=== PATIENT | male | born 1995 | race Caucasian/White ===

== ENCOUNTER 2019-01-20 19:36 | Inpatient (IN) ==
[2019-01-20] MEDS ORDERED: SODIUM CHLORIDE 0.9% 1000ML 1,000 ML IV SCH (20:00)
[2019-01-20 20:27] LABS: Basophils # (auto) 0.03 K/uL (0-0.2); Basophils % (auto) 0.2 %; Eosinophils # (auto) 0.11 K/uL (0-0.5); Eosinophils % (auto) 0.8 %; Hematocrit (blood only) 41.1 % (42-52); Hemoglobin 14.2 g/dL (14.0-18.0); Immature Granulocytes # (auto) 0.03 K/uL (0.00-0.02); Immature Granulocytes % (auto) 0.2 %; Lymphocytes # (auto) 1.42 K/uL (1.2-3.4); Lymphocytes % (auto) 10.5 %; Mean Corpuscular Hemoglobin 31.4 pg (25-34); Mean Corpuscular Hgb Conc 34.5 g/dL (32-36); Mean Corpuscular Volume 90.9 fL (80-100); Mean Platelet Volume 9.3 fL (7.4-10.4); Monocytes # (auto) 1.12 K/uL (0.11-0.59); Monocytes % (auto) 8.3 %; Neutrophils # (auto) 10.75 K/uL (1.4-6.5); Platelet Count 248 K/uL (130-400); RDW Coefficient of Variation 12.1 % (11.5-14.5); RDW Standard Deviation 40.5 fL (36.4-46.3); Red Blood Count 4.52 M/uL (4.7-6.1); White Blood Count 13.46 K/uL (4.8-10.8)
[2019-01-20 20:37] LABS: iSTAT Creatinine 0.7 mg/dl (0.6-1.3); iSTAT Hemoglobin 13.9 g/dl (14.0-18.0); iSTAT Ionized Calcium 1.19 mmol/l (1.12-1.32); iSTAT Potassium 3.9 mEq/L (3.3-5.0)
[2019-01-20 20:37] LABS: Appearance Urine Clear (Clear); Bilirubin Urine Negative (Negative); Blood Urine Negative (Negative); Color Urine Yellow; Glucose Urine UA Negative (Negative); Ketones Urine Trace (Negative); Leukocyte Esterase Urine Negative (Negative); Nitrite Urine Negative (Negative); Protein Urine Negative (Negative); Specific Gravity Urine 1.025 (1.000-1.030); Urobilinogen Urine Negative (Negative); pH Urine 5.5 (4.5-7.5)
[2019-01-20 20:49] LABS: Albumin Level 4.5 gm/dl (3.4-5.0); BUN Creatinine Ratio 20.6 (10-20); Calcium 9.4 mg/dl (8.5-10.1); Creatinine Clr Calc Pharmacy 129.2 ml/min; Est GFR (African American) 143.4; Est GFR (Non-African American) 123.7; Potassium 3.9 mmol/L (3.5-5.1)
[2019-01-20 20:52] LABS: Albumin Globulin Ratio 1.5 (0.9-2); Bilirubin,Total 1.1 mg/dl (0.2-1); Total Protein 7.5 gm/dl (6.4-8.2)
[2019-01-20] MEDS ORDERED: IOVERSOL 100ml IV PRN (21:41)
--- NOTE | 2019-01-20 21:51 | CT Scan Report ---
CT abd pelvis IV con only CLINICAL HISTORY: Lower abdominal pain. COMPARISON STUDY: None. TECHNIQUE: The patient was scanned in a dynamic helical fashion during intravenous administration of 89 cc of Optiray 320. A dose lowering technique was utilized adhering to the principles of ALARA. CT DOSE: 285.87 mGy.cm FINDINGS: Lower chest: The heart is normal in size and configuration, without pericardial effusion. The lung ba ses and pleural spaces are clear. Liver: The contrast-enhanced liver is normal in size, contour, and attenuation. There is no intrahepa tic biliary ductal dilatation. The hepatic veins and portal veins are patent. Gallbladder: Unremarkable. Spleen: Normal in size and attenuation. Pancreas: Unremarkable. Adrenal glands: There is mild left adrenal gland thickening. Kidneys: There is a 1 cm right renal cyst. There is a 9 mm lower pole left renal cyst. Bowel: There are no transition zones indicate bowel obstruction. There is no evidence of acute divert iculitis. There is a dilated fluid-filled appendix containing an appendicolith. There is periappendic eal inflammatory stranding. The findings are indicative of acute appendicitis. There is associated sm all to moderate free pelvic fluid. Peritoneum: There is free pelvic fluid. There is no free intraperitoneal air. Vasculature: The abdominal aorta is normal in course and caliber. Adenopathy: None. Pelvic viscera: The bladder, and pelvic viscera are unremarkable. Skeletal structures: There is a right femoral head bone island. No destructive lesions are visualized . There is an L5 limbus vertebra. IMPRESSION: Acute appendicitis with associated free pelvic fluid. Electronically signed by: Alex Foreman M.D. 01/20/2019 9:50 PM
--- NOTE | 2019-01-20 21:58 | Emergency Department Note ---
Entered by Radha Tolbert acting as a scribe for Miki Flores DO History of Present Illness General Chief complaint: Abdominal Pain Stated complaint: PAIN IN LOWER STOMACH,REFERRED BY DOC Source: patient History of Present Illness Onset (ago): hour(s) (24) Location: abdomen (lower) Radiation: non-radiation Pain Consistency: + constant Maximum Pain Intensity: 7 Associated symptoms: + denies other symptoms (back pain) and + nausea/vomiting (positive nausea, negative vomiting) The patient is a 23 year old male who presents to the Emergency Room with complaints of constant lower abdominal pain beginning approximately 24 hours ago. The patient notes the pain does not radiate outside of the abdomen. The patient reports nausea but no vomiting. He denies back pain. The patient states he visited [facility] where he was told to come to the ER for a possible appendix problem. The patient notes similar symptoms previously. 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 and A total of 10 systems reviewed and were otherwise negative Physical Exam Vital Signs Vital Signs - 24 hr 01/20/19 19:42 01/20/19 21:45 01/20/19 22:17 Temperature 36.8 C Temperature Source Oral Sepsis Recent Fever Within 48 Hours No Sepsis Action Taken by Nursing No Action Required Pulse Rate 82 82 Pulse Rate [Right Finger] 80 Pulse Rhythm Regular Respiratory Rate 18 18 18 Respiratory Effort / Characteristics Non-Labored Respiratory Depth Normal Blood Pressure 140/80 Blood Pressure [Right Arm] 119/65 Blood Pressure Mean 100 Blood Pressure Mean [Right Arm] 83 Blood Pressure Position [Right Arm] Sitting Pulse Oximetry 99 98 98 Oxygen Delivery Method Room Air Room Air Room Air 01/20/19 22:47 Temperature Temperature Source Sepsis Recent Fever Within 48 Hours Sepsis Action Taken by Nursing Pulse Rate 82 Pulse Rate [Right Finger] Pulse Rhythm Respiratory Rate 18 Respiratory Effort / Characteristics Respiratory Depth Blood Pressure 119/64 Blood Pressure [Right Arm] Blood Pressure Mean Blood Pressure Mean [Right Arm] Blood Pressure Position [Right Arm] Pulse Oximetry 98 Oxygen Delivery Method Room Air GENERAL: Patient is awake, alert, and in no acute distress.Patient is resting comfortably and showing no signs of anxiety EYES: The conjunctivae are clear. The pupils are round and reactive. EARS, NOSE, MOUTH AND THROAT: The nose is without any evidence of any deformity. Mucous membranes are moist.Tongue is midline NECK: The neck is nontender and supple. RESPIRATORY: Normal respiratory effort is noted. There is no evidence of wheezing rhonchi or rales to auscultation. CARDIOVASCULAR: Regular rate and rhythm noted. There no murmurs rubs or gallops normal S1 normal S2 GASTROINTESTINAL: The abdomen is soft. Bowel sounds are present in all q uadrants. Lower abdomen moderately tender to palpation. No guarding or rigidity. BACK: No midline tenderness or or step-off noted range of motion in flexion extension as well as rotation no signs of muscle spasm noted. MUSCULOSKELETAL/EXTREMITIES: There is no evidence of gross deformity. Full range of motion is noted in the hips and shoulders. SKIN: There is no obvious evidence of any rash. There are no petechiae, pallor or cyanosis noted. NEUROLOGIC: Patient is awake alert and oriented x3. Course 1950: Past medical records reviewed. The patient was evaluated in room B09. A complete history and physical exam was performed. 2199: I spoke with Dr. Springer - [facility] who agrees to evaluate the patient and admit the patient for further management. The patient verbalized agreement of the treatment plan. Administered Medications Discontinued Medications Bacitracin (Bacitracin) Confirm Administered Dose 45 appln .ROUTE .[facility]-MED ONE Stop: 01/20/19 22:50 Last Admin: 01/21/19 00:13 Dose: 45 appln Documented by: [id number] Bupivacaine HCl (Marcaine 0.5% Mpf) Confirm Administered Dose 30 ml .ROUTE .[facility]- MED ONE Stop: 01/20/19 22:50 Last Admin: 01/21/19 00:13 Dose: 10 ml Documented by: [id number] Fluoxetine HCl (Prozac) 40 mg PO DAILY DOROTHY Stop: 02/20/19 08:59 Last Admin: 01/21/19 08:46 Dose: 40 mg Documented by: [id number] Sodium Chloride (Nss 1000ml) 1,000 mls @ 999 mls/hr IV .[id number] DOROTHY Stop: 01/20/19 21:00 Last Infusion: 01/20/19 21:32 Dose: 0 mls/hr Documented by: [id number] Admin: 01/20/19 20:28 Dose: 999 mls/hr Documented by: [id number] Cefoxitin Sodium (Mefoxin) 2,000 mg in 60 mls @ 100 mls/hr IV NOW ONE Stop: 01/20/19 23:35 Last Infusion: 01/21/19 02:00 Dose: 0 mls/hr Documented by: [id number] Admin: 01/20/19 23:44 Dose: 100 mls/hr Documented by: [id number] Cefoxitin Sodium 1,000 mg/ (Dextrose) 60 mls @ 100 mls/hr IV Q6H [facility] Stop: 01/23/19 05:59 Last Infusion: 01/21/19 06:33 Dose: 0 mls/hr Documented by: [id number] Admin: 01/21/19 05:57 Dose: 100 mls/hr Documented by: [id number] Lactated Ringer's (Lr) 1,000 mls @ 80 mls/hr IV .[id number] [facility] Stop: 02/20/19 00:29 Last Infusion: 01/21/19 06:34 Dose: 80 mls/hr Documented by: [id number] Infusion: 01/21/19 06:33 Dose: 80 mls/hr Documented by: [id number] Infusion: 01/21/19 05:57 Dose: 0 mls/hr Documented by: [id number] Admin: 01/21/19 01:39 Dose: 80 mls/hr Documented by: [id number] Ioversol (Optiray 320 100ml) 89 ml IV ONCE PRN PRN Reason: Interaction Checking Stop: 01/24/19 21:40 Last Admin: 01/20/19 21:41 Dose: 89 ml Documented by: [id number] Lidocaine HCl (Xylocaine 1% (Local)) Confirm Administered Dose 20 ml .ROUTE .STK-MED ONE Stop: 01/20/19 22:50 Last Admin: 01/21/19 00:14 Dose: 10 ml Documented by: [id number] Oxycodone/Acetaminophen (Percocet 5mg/325mg) 1 tab PO Q4H PRN PRN Reason: Pain Stop: 02/04/19 00:18 Last Admin: 01/21/19 10:59 Dose: 1 tab Documented by: [id number] Admin: 01/21/19 03:14 Dose: 1 tab Documented by: [id number] Medical Decision Making Differential Diagnosis Differential diagnoses includes but is not limited to gastritis, peptic ulcer disease, GERD, gallbladder disease, pancreatitis, small bowel obstruction, acute coronary syndrome, pericarditis, ischemic bowel, irritable bowel disease, irritable bowel syndrome, appendicitis, diverticulitis, malignancy, hernia, urinary tract infection, torsion, perforation, trauma, infectious. Medical Records Attestation: I reviewed the patient's medical records. Home Medications Current Medication List: was personally reviewed by me Laboratory Data Attestation: I reviewed the patient's lab results. Result diagrams: 01/21/19 04:53 01/20/19 20:17 Lab Results 01/20/19 01/20/19 01/20/19 Range/Units 20:17 20:17 20:22 WBC 13.46 H (4.8-10.8) K/uL RBC 4.52 L (4.7-6.1) M/uL Hgb 14.2 (14.0-18.0) g/dL POC Hgb 13.9 L (14.0-18.0) g/dl Hct 41.1 L (42-52) % POC Hct 41 L (42-52) % MCV 90.9 (80-100) fL MCH 31.4 (25-34) pg MCHC 34.5 (32-36) g/dL RDW Std Deviation 40.5 (36.4-46.3) fL RDW Coeff of Junior 12.1 (11.5-14.5) % Plt Count 248 (130-400) K/uL MPV 9.3 (7.4-10.4) fL Immature Gran % (Auto) 0.2 % Neut % (Auto) 80.0 % Lymph % (Auto) 10.5 % Cloud % (Auto) 8.3 % Eos % (Auto) 0.8 % Baso % (Auto) 0.2 % Immature Gran # (Auto) 0.03 H (0.00-0.02) K/uL Neut # (Auto) 10.75 H (1.4-6.5) K/uL Lymph # (Auto) 1.42 (1.2-3.4) K/uL Cloud # (Auto) 1.12 H (0.11-0.59) K/uL Eos # (Auto) 0.11 (0-0.5) K/uL Baso # (Auto) 0.03 (0-0.2) K/uL POC Sodium 139 (135-144) mEq/L Sodium 139 (136-145) mmol/L POC Potassium 3.9 (3.3-5.0) mEq/L Potassium 3.9 (3.5-5.1) mmol/L POC Chloride 102 (101-112) mEq/L Chloride 106 (98-107) mmol/L Carbon Dioxide 26 (21-32) mmol/L POC Total CO2 26 (24-31) mEq/l Anion Gap 7.0 (3-11) POC Anion Gap 16.0 (16-25) mmol/L POC BUN 18 (7-18) mg/dl BUN 17 (7-18) mg/dl Creatinine 0.85 (0.6-1.4) mg/dl POC Creatinine 0.7 (0.6-1.3) mg/dl Est Cr Clr Drug Dosing 129.2 ml/min Est GFR ( Amer) 143.4 Est GFR (Non-Af Amer) 123.7 BUN/Creatinine Ratio 20.6 H (10-20) Glucose 92 (70-99) mg/dl POC Glucose (other) 93 (70-99) mg/dl Calcium 9.4 (8.5-10.1) mg/dl POC Ioniz Calcium Matt 1.19 (1.12-1.32) mmol/l Total Bilirubin 1.1 H (0.2-1) mg/dl AST 66 H (15-37) U/L ALT 56 (12-78) U/L Alkaline Phosphatase 80 (45-117) U/L Total Protein 7.5 (6.4-8.2) gm/dl Albumin 4.5 (3.4-5.0) gm/dl Globulin 3.0 (2.5-4.0) gm/dl Albumin/Globulin Ratio 1.5 (0.9-2) Lipase 222 (73-393) U/L Urine Color Urine Appearance (Clear) Urine pH (4.5-7.5) Ur Specific [place] (1.000-1.030) Urine Protein (Negative) Urine Glucose (UA) (Negative) Urine Ketones (Negative) Urine Blood (Negative) Urine Nitrite (Negative) Urine Bilirubin (Negative) Urine Urobilinogen (Negative) Ur Leukocyte Esterase (Negative) 01/20/19 Range/Units 20:30 WBC (4.8-10.8) K/uL RBC (4.7-6.1) M/uL Hgb (14.0-18.0) g/dL POC Hgb (14.0-18.0) g/dl Hct (42-52) % POC Hct (42-52) % MCV (80-100) fL MCH (25-34) pg MCHC (32-36) g/dL RDW Std Deviation (36.4-46.3) fL RDW Coeff of Junior (11.5-14.5) % Plt Count (130-400) K/uL MPV (7.4-10.4) fL Immature Gran % (Auto) % Neut % (Auto) % Lymph % (Auto) % Cloud % (Auto) % Eos % (Auto) % Baso % (Auto) % Immature Gran # (Auto) (0.00-0.02) K/uL Neut # (Auto) (1.4-6.5) K/uL Lymph # (Auto) (1.2-3.4) K/uL [place] # (Auto) (0.11-0.59) K/uL Eos # (Auto) (0-0.5) K/uL Baso # (Auto) (0-0.2) K/uL POC Sodium (135-144) mEq/L Sodium (136-145) mmol/L POC Potassium (3.3-5.0) mEq/L Potassium (3.5-5.1) mmol/L POC Chloride (101-112) mEq/L Chloride (98-107) mmol/L Carbon Dioxide (21-32) mmol/L POC Total CO2 (24-31) mEq/l Anion Gap (3-11) POC Anion Gap (16-25) mmol/L POC BUN (7-18) mg/dl BUN (7-18) mg/dl Creatinine (0.6-1.4) mg/dl POC Creatinine (0.6-1.3) mg/dl Est Cr Clr Drug Dosing ml/min Est GFR ( Amer) Est GFR (Non-Af Amer) BUN/Creatinine Ratio (10-20) Glucose (70-99) mg/dl POC Glucose (other) (70-99) mg/dl Calcium (8.5-10.1) mg/dl POC Ioniz Calcium Matt (1.12-1.32) mmol/l Total Bilirubin (0.2-1) mg/dl AST (15-37) U/L ALT (12-78) U/L Alkaline Phosphatase (45-117) U/L Total Protein (6.4-8.2) gm/dl Albumin (3.4-5.0) gm/dl Globulin (2.5-4.0) gm/dl Albumin/Globulin Ratio (0.9-2) Lipase (73-393) U/L Urine Color Yellow Urine Appearance Clear (Clear) Urine pH 5.5 (4.5-7.5) Ur Specific [place] 1.025 (1.000-1.030) Urine Protein Negative (Negative) Urine Glucose (UA) Negative (Negative) Urine Ketones Trace H (Negative) Urine Blood Negative (Negative) Urine Nitrite Negative (Negative) Urine Bilirubin Negative (Negative) Urine Urobilinogen Negative (Negative) Ur Leukocyte Esterase Negative (Negative) Imaging Data Radiologist's Impression: Radiology results as stated below per my review and the radiologist's interpretation: CT abd pelvis IV con only CLINICAL HISTORY: Lower abdominal pain. COMPARISON STUDY: None. TECHNIQUE: The patient was scanned in a dynamic helical fashion during intravenous administration of 89 cc of Optiray 320. A dose lowering technique was utilized adhering to the principles of ALARA. CT DOSE: 285.87 mGy.cm FINDINGS: Lower chest: The heart is normal in size and configuration, without pericardial effusion. The lung bases and pleural spaces are clear. Liver: The contrast-enhanced liver is normal in size, contour, and attenuation. There is no intrahepatic biliary ductal dilatation. The hepatic veins and portal veins are patent. Gallbladder: Unremarkable. Spleen: Normal in size and attenuation. Pancreas: Unremarkable. Adrenal glands: There is mild left adrenal gland thickening. Kidneys: There is a 1 cm right renal cyst. There is a 9 mm lower pole left renal cyst. Bowel: There are no transition zones indicate bowel obstruction. There is no evidence of acute diverticulitis. There is a dilated fluid-filled appendix containing an appendicolith. There is periappendiceal inflammatory stranding. The findings are indicative of acute appendicitis. There is associated small to moderate free pelvic fluid. Peritoneum: There is free pelvic fluid. There is no free intraperitoneal air. Vasculature: The abdominal aorta is normal in course and caliber. Adenopathy: None. Pelvic viscera: The bladder, and pelvic viscera are unremarkable. Skeletal structures: There is a right femoral head bone island. No destructive lesions are visualized. There is an L5 limbus vertebra. IMPRESSION: Acute appendicitis with associated free pelvic fluid. Electronically signed by: Alex Foreman M.D. 01/20/2019 9:50 PM Blood Pressure Blood Pressure Findings: Normal blood pressure MDM Narrative The patient is a 23-year-old male who presented to the emergency department for evaluation of lower abdominal pain. The patient had bilateral lower quadrant tenderness. He was sent to the emergency department for [facility] express for possible appendicitis. The patient's exam was not completely consistent with an acute surgical abdomen however his white blood cell count was elevated. This prompted a CAT scan of the abdomen and pelvis which did show signs of acute appendicitis with pelvic fluid. I discussed the patient's laboratory and radiographic studies with him. He was treated with IV fluids. He did not wish to have any pain medication at this time. Because of his findings I discussed his case with the on-call general surgeon. They have agreed to evaluate the patient in the emergency department for further management disposition. Impression & Plan Acute appendicitis, Abdominal pain Discharge Plan Visit Data *Final* Discharge Date/Time: 01/20/19 22:47 Chief Complaint: Abdominal Pain Stated Complaint: PAIN IN LOWER STOMACH,REFERRED BY DOC ED Provider: Miki Flores Discharge Problem: Acute appendicitis, Abdominal pain Patient Disposition: Admitted As Inpatient Condition: Good Discharge Instructions Interventions: ED Discharge Assessment Last Done: 01/20/19 22:47 Discharge Problem: Acute appendicitis Qualifiers: Acute appendicitis type: with localized peritonitis Appendicitis gangrene pres ence: without gangrene Appendicitis perforation presence: without perforation Appendicitis abscess presence: without abscess Qualified Code(s): K35.30 - Acute appendicitis with localized peritonitis, without perforation or gangrene Abdominal pain Qualifiers: Abdominal location: lower abdomen, unspecified Qualified Code(s): R10.30 - Lower abdominal pain, unspecified The scribe's documentation has been prepared under my direction and personally reviewed by me in its entirety. I confirm that the note above accurately reflects all work, treatment, procedures, and medical decision making performed by me.
--- NOTE | 2019-01-20 22:36 | Surgery Consultation ---
Date of Consultation January 20, 2019 Assessment & Plan (1) Acute appendicitis: pt is a 23 year-old male who presents to ER with one day history acute abdominal pain, WBC 13.6, CT scan - acute appendicitis IMP: Acute appendicitis Plan: I recommend to do laparoscopic appendectomy, possible open, D/W benefits, risks nad alternatives of the surgery, the risks - infection, bleeding, injury bowel, abscess, pt understood, he agrees with the surgery, I answered all questions, History of Present Illness History of Present Illness CC: abdominal pain HPI: pt is a 23 year-old male who presents to ER with one day history acute abdominal pain, with nausea but no vomiting, the pain is locate at RLQ area, pt denies fever, no diarrhea, no back pain, WBC 13,000. pt had CT scan at ER diagnosis with acute appendicitis, otherwise, pt is healthy in the past. Allergies Allergy/AdvReac Type Severity Reaction Status Date / Time No Known Allergies Allergy Verified 01/20/19 20:55 Home Medications Home Medications Medication Instructions Recorded Confirmed Type fluoxetine 40 mg PO DAILY 01/20/19 01/20/19 History Patient History Medical History No pertinent past medical history Surgical History No pertinent past surgical history Family History Other No pertinent family history Social History Feels Safe at Home: Yes Smoking Status: Never smoker Review of Systems Review of Systems: All systems reviewed & are unremarkable except as noted in HPI & below Physical Exam Constitutional: WD/WN, vitals as above well developed and well nourished ENMT: external ear and nose normal, oropharynx normal Neck: trachea midline, no thyromegaly Respiratory: normal respiratory effort, lungs clear to auscultation normal respiratory effort Cardiovascular: RRR, no murmur, no edema Rate/Rhythm: regular rate and regular rhythm Heart Sounds: normal S1 and normal S2 Gastrointestinal (Abdomen): normal bowel sounds, soft, nontender, no hepatosplenomegaly Percussion/Palpation: + abdomen tender soft, tenderness at RLQ, no rebound pain, BS + Musculoskeletal: no cyanosis or clubbing, extremities motor strength 5/5 Skin: no rashes, warm and dry Neurologic: patellar DTR's 2+ bilat, sensation intact Psychiatric: A+Ox3, euthymic affect Orientation: alert and oriented x 3 Lymphatic: no cervical or axillary lymphadenopathy Results & Data Vital Signs (Past 12 Hours) Vital Signs Temp Pulse Pulse Resp BP BP Pulse Ox 01/20/19 22:17 82 18 98 01/20/19 21:45 80 18 119/65 98 01/20/19 19:42 36.8 C 82 18 140/80 99 Laboratory Results Abnormal lab results 01/20/19 01/20/19 01/20/19 Range/Units 20:17 20:17 20:22 WBC 13.46 H (4.8-10.8) K/uL RBC 4.52 L (4.7-6.1) M/uL POC Hgb 13.9 L (14.0-18.0) g/dl Hct 41.1 L (42-52) % POC Hct 41 L (42-52) % Immature Gran # (Auto) 0.03 H (0.00-0.02) K/uL Neut # (Auto) 10.75 H (1.4-6.5) K/uL [place] # (Auto) 1.12 H (0.11-0.59) K/uL BUN/Creatinine Ratio 20.6 H (10-20) Total Bilirubin 1.1 H (0.2-1) mg/dl AST 66 H (15-37) U/L Urine Ketones (Negative) 01/20/19 Range/Units 20:30 WBC (4.8-10.8) K/uL RBC (4.7-6.1) M/uL POC Hgb (14.0-18.0) g/dl Hct (42-52) % POC Hct (42-52) % Immature Gran # (Auto) (0.00-0.02) K/uL Neut # (Auto) (1.4-6.5) K/uL [place] # (Auto) (0.11-0.59) K/uL BUN/Creatinine Ratio (10-20) Total Bilirubin (0.2-1) mg/dl AST (15-37) U/L Urine Ketones Trace H (Negative) Diagnostic Findings CT abd pelvis IV con only CLINICAL HISTORY: Lower abdominal pain. COMPARISON STUDY: None. TECHNIQUE: The patient was scanned in a dynamic helical fashion during intravenous administration of 89 cc of Optiray 320. A dose lowering technique was utilized adhering to the principles of ALARA. CT DOSE: 285.87 mGy.cm FINDINGS: Lower chest: The heart is normal in size and configuration, without pericardial effusion. The lung bases and pleural spaces are clear. Liver: The contrast-enhanced liver is normal in size, contour, and attenuation. There is no intrahepatic biliary ductal dilatation. The hepatic veins and portal veins are patent. Gallbladder: Unremarkable. Spleen: Normal in size and attenuation. Pancreas: Unremarkable. Adrenal glands: There is mild left adrenal gland thickening. Kidneys: There is a 1 cm right renal cyst. There is a 9 mm lower pole left renal cyst. Bowel: There are no transition zones indicate bowel obstruction. There is no evidence of acute diverticulitis. There is a dilated fluid-filled appendix containing an appendicolith. There is periappendiceal inflammatory stranding. The findings are indicative of acute appendicitis. There is associated small to moderate free pelvic fluid. Peritoneum: There is free pelvic fluid. There is no free intraperitoneal air. Vasculature: The abdominal aorta is normal in course and caliber. Adenopathy: None. Pelvic viscera: The bladder, and pelvic viscera are unremarkable. Skeletal structures: There is a right femoral head bone island. No destructive lesions are visualized. There is an L5 limbus vertebra. IMPRESSION: Acute appendicitis with associated free pelvic fluid.
[2019-01-20] MEDS ORDERED: PROPOFOL IV EMULSION 10 MG/ML 20 ML VIAL IV ONE (22:40)
[2019-01-20] MEDS ORDERED: SUCCINYLCHOLINE CHLORIDE 20 MG/ML 10 ML VIAL ONE (22:40)
[2019-01-20] MEDS ORDERED: LIDOCAINE HCL 2% 2 ML VIAL/AMP(20MG/ML) INFIL ONE (22:40)
[2019-01-20] MEDS ORDERED: fentaNYL citrate 100 MCG/2 ML VIAL ONE ×2 (22:40→23:50)
[2019-01-20] MEDS ORDERED: ROCURONIUM BROMIDE 10 MG/ML 5 ML VIAL ONE (22:40)
[2019-01-20] MEDS ORDERED: MIDAZOLAM HCL 1 MG/ML 2ML VIAL ONE (22:40)
[2019-01-20] MEDS ORDERED: BACITRACIN OINT 15 GM TUBE ONE (22:49)
[2019-01-20] MEDS ORDERED: BUPIVACAINE 0.5 % 5 MG/1 ML MPF 30ML VIAL ONE (22:49)
[2019-01-20] MEDS ORDERED: LIDOCAINE HCL 1% 20 ML VIAL ONE (22:49)
[2019-01-20] MEDS ORDERED: cefOXitin 2,000 MG/60 ML BAG IV ONE (23:00)
--- NOTE | 2019-01-20 23:11 | History & Physical Bridge Note ---
Date of Service January 20, 2019 History & Physical Bridge Note I have examined the patient, reviewed the History & Physical and in the interval since the performance of the History & Physical I have noted the following changes of clinical significance: no changes noted
--- NOTE | 2019-01-20 23:26 | Anesthesiology Consultation ---
Date of Service January 20, 2019 Assessment & Plan (1) Encounter for pre-operative examination: Chart Review Chart Review: Acceptable Risk for Surgery and Patient NOT seen in Pre Admission Testing Consults Requested none ASA [id number] Proposed Anesthesia Anesthesia Type: General Risk / Benefits Reviewed With: PT / POA / Parent / Guardian, Accepts Plan and Informed Consent Obtained History Surgery Operation Date: 01/20/19 22:40 Proposed Procedures p Laparoscopic Appendectomy - Jazmin Springer MD Height/Weight Height: 5 ft 11 in Weight: 67 kg Allergies Allergy/AdvReac Type Severity Reaction Status Date / Time No Known Allergies Allergy Verified 01/20/19 20:55 Medications Home Medications Medication Instructions Recorded Confirmed Last Taken fluoxetine 40 mg PO DAILY 01/20/19 01/20/19 Unknown Active Medications Generic Name Dose Route Start Last Admin Trade Name Freq PRN Reason Stop Dose Admin Ioversol 89 ml 01/20/19 21:41 01/20/19 21:41 Optiray 320 100ml IV 01/24/19 21:40 89 ml ONCE PRN Administration Interaction Checking NPO Date Last Intake of Fluids: 01/20/19 Time Last Intake of Fluids: 17:30 Date Last Intake of Solids: 01/20/19 Time Last Intake of Solids: 11:30 Past Medical History Medical History Acute appendicitis Anxiety Exercise / Class Metabolic Activity 1 > 8 Run/Swim/Ski/Tennis Negative for chest pain or shortness of breath. Past Family History Family History Other No pertinent family history Past Surgical History Surgical History History of surgery on left wrist Past Anesthesia History No Hx of Anesthesia Complications History of PONV No Hx of PONV and No Hx of Motion Sickness Social History Smoking Status: Never smoker Do You Dip or Chew Tobacco: No Hx Alcohol Use: Yes alcohol intake frequency: a few times a month Hx Substance Use: No Review of Systems Positive for nausea and abdominal pain Physical Exam Vital Signs Last Vital Signs Temp 36.8 C 01/20/19 19:42 Pulse 82 01/20/19 22:47 Resp 18 01/20/19 22:47 BP 119/64 01/20/19 22:47 Pulse Ox 98 01/20/19 22:47 Constitutional not obese ENMT Mouth: no TMJ abnormality, no dentition abnormality and oral opening not small Thyromental Distance: > or= 3.5 Finger Breadths Mallampati Class: I Neck normal visual inspection and + facial hair; neck extension not limited Respiratory normal respiratory effort Auscultation: lungs clear to auscultation bilaterally Cardiovascular Rate/Rhythm: regular rate and regular rhythm Heart Sounds: no murmur Neurologic moves all extremities Psychiatric Orientation: alert and oriented x 3 Testing Laboratory Results 01/20/19 20:17 01/20/19 20:17 Urine Color Yellow 01/20/19 20:30 Urine Appearance Clear (Clear) 01/20/19 20:30 Urine pH 5.5 (4.5-7.5) 01/20/19 20:30 Ur Specific [place] 1.025 (1.000-1.030) 01/20/19 20:30 Urine Protein Negative (Negative) 01/20/19 20:30 Urine Glucose (UA) Negative (Negative) 01/20/19 20:30 Urine Ketones Trace (Negative) H 01/20/19 20:30 Urine Nitrite Negative (Negative) 01/20/19 20:30 Ur Leukocyte Esterase Negative (Negative) 01/20/19 20:30 01/20/19 20:22 POC Glucose (other) 93
[2019-01-21] MEDS ORDERED: DEXAMETHASONE SOD INJ 4 MG/ML VIAL ONE (00:02)
[2019-01-21] MEDS ORDERED: ONDANSETRON INJ 2 MG/ML 2 ML VIAL ONE (00:02)
[2019-01-21] MEDS ORDERED: GLYCOPYRROLATE 0.2 MG/ML VIAL ONE ×2 (00:02→00:06)
[2019-01-21] MEDS ORDERED: NEOSTIGMINE METHYLSULFATE 5 MG/5 ML SYR ONE (00:02)
--- NOTE | 2019-01-21 00:18 | Post Operative Brief Note ---
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
[2019-01-21] MEDS ORDERED: HYDROmorphone INJ 0.5 MG/0.5 ML SYR IV PRN (00:19)
[2019-01-21] MEDS ORDERED: LACTATED RINGER'S 1,000 ML IV SCH (00:30)
[2019-01-21] MEDS ORDERED: HYDROmorphone INJ 1 MG/ML SYRINGE IV PRN (00:45)
[2019-01-21] MEDS ORDERED: ePHEDrine sulfate 50 MG/ML AMP IV PRN (00:45)
[2019-01-21] MEDS ORDERED: fentaNYL citrate 100 MCG/2 ML VIAL IV PRN (00:45)
[2019-01-21] MEDS ORDERED: ONDANSETRON INJ 2 MG/ML 2 ML VIAL IV PRN (00:45)
[2019-01-21] MEDS ORDERED: ATROPINE SULFATE 0.1 MG/ML 10ML SYR IV PRN (00:45)
[2019-01-21] MEDS ORDERED: PROMETHAZINE HCL 12.5 MG in SODIUM CHLORIDE 0.9% 50 ML IV PRN (00:45)
[2019-01-21] MEDS ORDERED: KETOROLAC 30 MG/ML VIAL IV PRN (00:45)
--- NOTE | 2019-01-21 01:38 | Anesthesiology Progress Note ---
Date of Service January 21, 2019 Anesthesia Post Procedure Vital Signs Vital Signs: Temp Pulse Pulse Pulse Resp BP BP 01/21/19 01:19 37.1 C 77 15 136/66 01/21/19 01:00 37.2 C 64 19 127/63 01/21/19 00:50 68 18 136/61 01/21/19 00:40 92 H 20 126/61 01/21/19 00:33 37.1 C 87 16 122/66 01/20/19 22:47 82 18 119/64 01/20/19 22:17 82 18 01/20/19 21:45 80 18 01/20/19 19:42 36.8 C 82 18 140/80 BP Pulse Ox 01/21/19 01:19 95 01/21/19 01:00 96 01/21/19 00:50 96 01/21/19 00:40 100 01/21/19 00:33 100 01/20/19 22:47 98 01/20/19 22:17 98 01/20/19 21:45 119/65 98 01/20/19 19:42 99 Transfer of Care Handoff Completed per policy Notes Mental Status: alert / awake / arousable and participated in evaluation Patient Amnestic to Procedure: Yes Nausea / Vomiting: adequately controlled Pain: adequately controlled Airway Patency, RR, SpO2: stable & adequate BP & HR: stable & adequate Hydration State: stable & adequate Anesthetic Complications: no major complications apparent and Pt Satisfied with anesthetic care
--- NOTE | 2019-01-21 02:26 | Operative Report ---
DATE OF OPERATION: 01/21/2019 PREOPERATIVE DIAGNOSIS: Acute appendicitis. POSTOPERATIVE DIAGNOSIS: Acute appendicitis. OPERATION: Laparoscopic appendectomy. SURGEON: Jazmin Springer MD ANESTHESIA: General. ESTIMATED BLOOD LOSS: About 5 mL. FINDINGS: Acute appendicitis. COMPLICATIONS: None. INDICATIONS FOR THE PROCEDURE: This is a 23-year-old gentleman who presented to Emergency Department with 1 day history of abdominal pain. The patient had a CT scan diagnosis of acute appendicitis. I recommended to do laparoscopic appendectomy, possible open. I did talk to the patient about the benefits and risks and alternatives of the procedure. I indicated the risks may include but not limited such as bleeding, infection, injury to the bowel or abscess. The patient understands. He signed informed consent and I answered all questions. DETAILS OF PROCEDURE: We brought the patient to the Operating Room and put the patient in the supine position. The patient received sequential compression devices on bilateral legs to prevent deep venous thrombosis. Also, the patient received 2 g cefoxitin I.V. for prophylactic antibiotic. The patient received general anesthesia without difficulty. The abdomen was prepped and draped in routine sterile fashion. After timeout, I injected local anesthesia by using 1% lidocaine mixed with 0.5% Marcaine just above umbilicus. Then, I made a small incision just above umbilicus, opened fascia and opened peritoneum under direct vision, put a Perlita trocar in, connected to CO2 to create pneumoperitoneum. Flow rate is 6 liters per minute. Pressure not more than 14 mmHg. Once we got a nice pneumoperitoneum, we put a camera in, looked around the abdomen, there was some free fluid in the pelvic area and also we found the patient had acute appendicitis. The appendix was enlarged with inflammation and confirmed diagnosis of acute appendicitis. Then, we put another two 5 mm trocar on the left lower quadrant area. Once all trocars in, I used a grasper to hold the appendiceal and I used the harmonic to take down the appendiceal, rechecked and no active bleeding. Then, I used 45 mm Endo-CARLOS ALBERTO staple for transection on the base of the appendix and rechecked the staple line intact. No active bleeding and no leak. Then, we removed the appendix through the catch bag then we reinserted Perlita trocar in and connected to CO2 to create pneumoperitoneum. Again, we looked around the abdomen, no active bleeding and the staple line intact. Once we suctioned all the free fluid from the pelvic area, then, we removed all trocar under direct vision. No active bleeding from the trocar sites. Pneumoperitoneum was released. Then, we closed the umbilical incision, fascial layer by using #1 Vicryl [id number] x2, closed subcutaneous layer by using 2-0 Vicryl interrupted layer, closed skin by using 4-0 Vicryl continuous running, closed another two 5 mm trocar site skin only by using 4-0 Vicryl and then we put the dressing on. The patient tolerated the procedure well. All instrument, needle and sponge count were correct x2 at the end of the case. The patient was transferred to recovery room in a stable condition. The specimen was sent to pathology. I attest to the content of the Intraoperative Record and any orders documented therein. Any exception s are noted below.
[2019-01-21] MEDS: OXYCODONE/ACETAMINOPHEN 5mg/325mg TAB PO PRN ×2 (03:14→10:59)
[2019-01-21 05:25] LABS: Basophils # (auto) 0.01 K/uL (0-0.2); Basophils % (auto) 0.1 %; Eosinophils # (auto) 0.01 K/uL (0-0.5); Eosinophils % (auto) 0.1 %; Hematocrit (blood only) 39.4 % (42-52); Hemoglobin 13.6 g/dL (14.0-18.0); Immature Granulocytes # (auto) 0.02 K/uL (0.00-0.02); Immature Granulocytes % (auto) 0.2 %; Lymphocytes # (auto) 0.71 K/uL (1.2-3.4); Lymphocytes % (auto) 7.4 %; Mean Corpuscular Hemoglobin 31.6 pg (25-34); Mean Corpuscular Hgb Conc 34.5 g/dL (32-36); Mean Corpuscular Volume 91.4 fL (80-100); Mean Platelet Volume 9.5 fL (7.4-10.4); Monocytes % (auto) 2.1 %; Neutrophils # (auto) 8.62 K/uL (1.4-6.5); Neutrophils % (auto) 90.1 %; Platelet Count 262 K/uL (130-400); RDW Coefficient of Variation 12.2 % (11.5-14.5); RDW Standard Deviation 41.4 fL (36.4-46.3); Red Blood Count 4.31 M/uL (4.7-6.1); White Blood Count 9.57 K/uL (4.8-10.8)
[2019-01-21] MEDS ORDERED: FLUOXETINE HCL 20 MG CAP PO SCH (09:00)
--- NOTE | 2019-01-21 09:07 | Surgery Progress Note ---
Date of Service F/U S/P laparosocpic appendectomy, POD 1, pt is doing better, less abdominal pain, no nausea, no vomiting, WBC 9,000 January 21, 2019 Assessment & Plan (1) Acute appendicitis: pt is a 23 year-old male who presents to ER with one day history acute abdominal pain, WBC 13.6, CT scan - acute appendicitis IMP: Acute appendicitis Plan: I recommend to do laparoscopic appendectomy, possible open, D/W benefits, risks and alternatives of the surgery, the risks - infection, bleeding, injury bowel, abscess, pt understood, he agrees with the surgery, I answered all questions, 01/21/2019 9:04am POD 1, doing fine, normal wbc discharge today post-op care instruction was given, informed pt and his father about OR finding and the procedure pt had, they understood, I answered all questions, F/U 1-2 weeks, Physical Exam Constitutional: WD/WN, vitals as above well developed and well nourished ENMT: external ear and nose normal, oropharynx normal Neck: trachea midline, no thyromegaly Respiratory: normal respiratory effort, lungs clear to auscultation normal respiratory effort Cardiovascular: RRR, no murmur, no edema Rate/Rhythm: regular rate and regular rhythm Heart Sounds: normal S1 and normal S2 Gastrointestinal (Abdomen): normal bowel sounds, soft, nontender, no hepatosplenomegaly Percussion/Palpation: abdomen soft (mild tenderness at incisions site, no redness, no drainage, BS +) Musculoskeletal: no cyanosis or clubbing, extremities motor strength 5/5 Skin: no rashes, warm and dry Neurologic: patellar DTR's 2+ bilat, sensation intact Psychiatric: A+Ox3, euthymic affect Orientation: alert and oriented x 3 Lymphatic: no cervical or axillary lymphadenopathy Results & Data Vital Signs (Past 12 Hours) Vital Signs Temp Pulse Pulse Pulse Resp BP BP 01/21/19 07:49 36.4 C L 69 18 118/49 L 01/21/19 04:35 36.7 C 68 15 116/50 L 01/21/19 03:19 36.6 C 60 16 124/52 L 01/21/19 02:20 37.1 C 69 15 121/65 01/21/19 01:49 36.6 C 61 15 124/69 10/06/19 01:25 65 16 01/21/19 01:19 37.1 C 77 15 136/66 01/21/19 01:00 37.2 C 64 19 127/63 01/21/19 00:50 68 18 136/61 01/21/19 00:40 92 H 20 126/61 01/21/19 00:33 37.1 C 87 16 122/66 01/20/19 22:47 82 18 119/64 01/20/19 22:17 82 18 01/20/19 21:45 80 18 BP Pulse Ox 01/21/19 07:49 97 01/21/19 04:35 96 01/21/19 03:19 95 01/21/19 02:20 97 01/21/19 01:49 97 01/21/19 01:25 98 01/21/19 01:19 95 01/21/19 01:00 96 01/21/19 00:50 96 01/21/19 00:40 100 01/21/19 00:33 100 01/20/19 22:47 98 01/20/19 22:17 98 01/20/19 21:45 119/65 98 Laboratory Results Abnormal lab results 01/20/19 01/20/19 01/20/19 Range/Units 20:17 20:17 20:22 WBC 13.46 H (4.8-10.8) K/uL RBC 4.52 L (4.7-6.1) M/uL Hgb (14.0-18.0) g/dL POC Hgb 13.9 L (14.0-18.0) g/dl Hct 41.1 L (42-52) % POC Hct 41 L (42-52) % Immature Gran # (Auto) 0.03 H (0.00-0.02) K/uL Neut # (Auto) 10.75 H (1.4-6.5) K/uL Lymph # (Auto) (1.2-3.4) K/uL [place] # (Auto) 1.12 H (0.11-0.59) K/uL BUN/Creatinine Ratio 20.6 H (10-20) Total Bilirubin 1.1 H (0.2-1) mg/dl AST 66 H (15-37) U/L Urine Ketones (Negative) 01/20/19 01/21/19 Range/Units 20:30 04:53 WBC (4.8-10.8) K/uL RBC 4.31 L (4.7-6.1) M/uL Hgb 13.6 L (14.0-18.0) g/dL POC Hgb (14.0-18.0) g/dl Hct 39.4 L (42-52) % POC Hct (42-52) % Immature Gran # (Auto) (0.00-0.02) K/uL Neut # (Auto) 8.62 H (1.4-6.5) K/uL Lymph # (Auto) 0.71 L (1.2-3.4) K/uL [place] # (Auto) (0.11-0.59) K/uL BUN/Creatinine Ratio (10-20) Total Bilirubin (0.2-1) mg/dl AST (15-37) U/L Urine Ketones Trace H (Negative)
--- NOTE | 2019-01-21 23:23 | Discharge Summary ---
ADMITTING DIAGNOSIS: Acute appendicitis. DISCHARGE DIAGNOSIS: Acute appendicitis. OPERATION: Laparoscopic appendectomy. SURGEON: Jazmin Springer MD DETAILS OF DISCHARGE SUMMARY: This is a 23-year-old gentleman who presented to the ED with 1-day history of acute abdominal pain. The patient had a CT scan diagnosis of acute appendicitis on 01/20/2019. We took the patient to the OR. We did a laparoscopic appendectomy. In the OR, we confirmed the patient had acute appendicitis. The patient tolerated the procedure well. After procedure, the patient was transferred to regular floor. The patient is doing fine and he tolerated a clear diet. No nausea, no vomiting, no significant pain. PHYSICAL EXAMINATION: VITAL SIGNS: Temperature is 36.4, heart rate is 69, respiratory rate 18, blood pressure 118/49, O2 saturation 97% on room air. GENERAL: The patient is alert, awake, oriented x3. HEENT: Within normal limitation. NEUROLOGIC: Intact. NECK: No JVD. CHEST: Bilateral lung sounds clear. HEART: Normal S1, S2. No murmur. ABDOMEN: Soft, mild incision tenderness. All incisions intact. No drainage, no redness. Bowel sounds positive. No distention of abdomen. EXTREMITIES: No edema. I informed the patient and the patient's parents about OR finding and procedure, they understand. The patient wanted to go home today. We discharged the patient home today. I also gave the patient postop care instruction. I will follow up the patient in about 2 weeks.
== END 2019-01-21 11:31 | disposition home or self-care (01) | DRG 343 ==
LOC: ED 19:36 → OR 22:47 → 3W 01-21 00:19